=== PATIENT | female | born 2000 | race Caucasian/White ===

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

== ENCOUNTER 2019-10-05 08:15 | Emergency (ER) | payer OTHER ==
[2019-10-05 08:29] VITALS: BP 108/50; PULSE 65; TEMP 98.2; BMI 25.6
[2019-10-05] MEDS ORDERED: DEXAMETHASONE SOD PHOSPHATE 10 MG/1 ML VIAL IM ONE (09:07)
--- NOTE | 2019-10-05 09:14 | PDOC ---
History of Present Illness - General Chief Complaint: Rash Stated Complaint: BLISTERS ON RIGHT HAND Time Seen by Provider: 10/05/19 08:33 History Source: Patient Exam Limitations: No Limitations Past History - Travel Traveled outside of the country in the last 30 days: No Close contact w/someone who was outside of country & ill: No - Past Medical History Allergies/Adverse Reactions: Allergies Allergy/AdvReac Type Severity Reaction Status Date / Time No Known Allergies Allergy Verified 10/05/19 08:20 Home Medications: Ambulatory Orders No Home Medications 0 dose .ROUTE UTDICT 03/04/14 Clobetasol Propionate [Temovate] 1 applic TP BID #60 grams 10/05/19 COPD: No - Immunization History Immunization Up to Date: Yes - Psycho Social/Smoking Cessation Hx Smoking History: Never smoked Have you smoked in the past 12 months: No Information on smoking cessation initiated: No Hx Alcohol Use: No Drug/Substance Use Hx: No Substance Use Type: None Review of Systems - Review of Systems Able to Perform ROS?: Yes Comments:: 10/05/19 09:14 CONSTITUTIONAL: Absent: fever, chills, diaphoresis, generalized weakness, malaise, loss of appetite MUSCULOSKELETAL: Absent: myalgia, arthralgia, joint swelling SKIN: Present: rash to hands and fingers. Absent: rash, itching, pallor HEMATOLOGIC/IMMUNOLOGIC: Absent: easy bleeding, easy bruising, lymphadenopathy, frequent infections NEUROLOGIC: Absent: headache, focal weakness or paresthesias, dizziness, unsteady gait, seizure, mental status changes, bladder or bowel incontinence PSYCHIATRIC: Absent: anxiety, depression, suicidal or homicidal ideation, hallucinations. Is the patient limited Maori proficient: No *Physical Exam - Vital Signs Last Vital Signs Temp Pulse Resp BP Pulse Ox 98.2 F 65 17 108/50 L 99 10/05/19 08:21 10/05/19 08:21 10/05/19 08:21 10/05/19 08:21 10/05/19 08:21 - Physical Exam 10/05/19 09:14 GENERAL: The patient is awake, alert, and fully oriented, in no acute distress. HEAD: Normal with no signs of trauma. EYES: Pupils equal, round and reactive to light, extraocular movements intact, sclera anicteric, conjunctiva clear. EXTREMITIES: Normal range of motion, no edema. NEUROLOGICAL: Normal speech, normal gait. PSYCH: Normal mood, normal affect. SKIN: Vesicular lesions noted to the palms of the hands bilaterally as well as the fingers bilaterally. Associated redness and cracking noted. Skin appears dry. Also noted are dry pruritic papules noted in the right antecubital area. Warm, Dry, normal turgor, no rashes or lesions noted. Medical Decision Making - Medical Decision Making 10/05/19 09:18 Patient is a 19-year-old female who presents the ER for a rash to her hands for 1 month. She states that the rash comes and goes however it is gotten worse over the past week. She notes that she has had blisters on the palms of both of her hands. The right has been worse than the left. She notes that she is also starting to get some bumps on her arm. She states that the rash is very itchy and her hands are very dry. Denies fevers, chills, allergy history, eczema history, aspirin use, trauma and recent viral illness. A/P: Rash On exam the hands are red and cracked bilaterally, right worse than left. Mostly located on the soles however the rash is starting to extend to the dorsal aspect. Vesicles noted. Patient also with. Papules to the right antecubital space Suspected eczema versus a pemphigoid versus a psoriasis type condition. We will treat with steroids IM in the ER and give ointment as an outpatient. Patient instructed that she needs follow-up with Derm for a definitive diagnosis Discharge home with return precautions I discussed the physical exam findings, ancillary test results and final diagnoses with the patient. I answered all of the patient's questions. The patient was satisfied with the care received and felt comfortable with the discharge plan and treatment plan. The Patient agrees to follow up with the primary care physician/specialist within 24-72 hours. Return precautions were given. Discharge - Discharge Information Problems reviewed: Yes Clinical Impression/Diagnosis: Rash Condition: Stable Disposition: HOME - Admission No - Follow up/Referral Referrals: Barbara Horton MD [Staff Physician] - - Patient Discharge Instructions Patient Printed Discharge Instructions: DI for Atopic Dermatitis - Adult Additional Instructions: Your evaluated for your rash today. It appears to be eczema. You were given a dose of steroids in the emergency department. Please use the steroid cream to your hands twice a day. Please also moisturize her hands and avoid any irritants including alcohol these products Please follow-up with dermatology this week. A referral has been provided for you. Return to the ER for fever, worsening pain, worsening rash or if you have any changes in your symptoms. - Post Discharge Activity
[2019-10-05] MEDS ORDERED: DEXAMETHASONE SOD PHOSPHATE 10 MG/1 ML VIAL ONE (09:32)
== END 2019-10-05 10:25 | disposition home or self-care (01) ==
LOC: JER 08:15 → JERFT 08:15
PROC: 3E023GC Introduction of Other Therapeutic Substance into Muscle, Percutaneous Approach (ICD-10-PCS; principal; 2019-10-05)
DX: R21 Rash and other nonspecific skin eruption (principal)
CPT/HCPCS: 96372; 99281-25; J1100

== ENCOUNTER 2021-06-04 04:45 | Emergency (ER) | payer OTHER ==
[2021-06-04 05:05] VITALS: BMI 32.0
[2021-06-04] MEDS ORDERED: IBUPROFEN 600 MG TABLET (FP) PO ONE ×2 (05:55→07:28)
[2021-06-04 09:49] VITALS: BP 111/61; PULSE 80; TEMP 99.3
== END 2021-06-04 10:45 | disposition home or self-care (01) ==
LOC: JER 04:45
DX: U07.1 COVID-19 (principal)
CPT/HCPCS: 71046-TC-FY; 87804; 87807; 99284-25; C9803; U0003; U0005

== ENCOUNTER 2022-01-27 13:59 | Emergency (ER) | payer OTHER ==
[2022-01-27 14:14] VITALS: BP 104/71; PULSE 78; TEMP 98; BMI 32.9
[2022-01-27 15:04] LABS: EPI CELLS 7 /uL (0-25.1); HYALINE CASTS 23 /uL (0-3.1); URINE APPEARANCE CLOUDY; URINE BACTERIA 2355 /uL (0-1359); URINE BILIRUBIN NEGATIVE (NEGATIVE); URINE COLOR YELLOW; URINE GLUCOSE (UA) NEGATIVE (NEGATIVE); URINE KETONE NEGATIVE (NEGATIVE); URINE LEUK ESTERASE 2+ (NEGATIVE); URINE NITRITE NEGATIVE (NEGATIVE); URINE PROTEIN 1+ (NEGATIVE); URINE RBC 755 /uL (0-23.9); URINE WBC 622 /uL (0-25.8)
== END 2022-01-27 16:05 | disposition home or self-care (01) ==
LOC: JERFT 13:59 → JER 13:59 → JERFT 16:05
DX: N39.0 Urinary tract infection, site not specified (principal)
CPT/HCPCS: 36415; 81003; 84703; 87086; 87186; 87491; 87591; 99283-25